=== PATIENT | female | born 1970 | race Caucasian/White ===

== ENCOUNTER 2022-02-01 23:44 | Emergency (ER) | payer SELFPAY ==
[~2022-02-01] VITALS: Ht 160 cm; Wt 61.4 kg
[2022-02-01 23:49] VITALS: BP 163/82
--- NOTE | 2022-02-02 00:06 | NUR ---
CONTACTED POISON CONTROL FOR PT. THEY RECOMMENDED THE FOLLOWING: WATCH PT FOR 6-8HRS, POSSIBLE RIB SAWYER/RESPIRATORY DEPRESSION AND POSSIBLE SEIZURES (BENZOS COULD HELP THIS IF OCCURS), OBTAIN LABS--CBC, CMP, TYLENOL, ASPIRIN, ALCOHOL; ENSURE TO WATCH PT UNTIL COMES BACK TO BASELINE. ER DOCTOR INFORMED OF UPDATE FROM POISON CONTROL AND PLAN.
--- NOTE | 2022-02-02 01:26 | NUR ---
PT REQUESTED UPDATE ON WHAT POISON CONTROL RECOMMENDED AND WHAT PROVIDER PLANNED. I SPOKE WITH PT AND PT's AND AFTER PROVIDING THEM WITH THE PLAN, THEY DECIDED AGAINST MEDICAL RECOMMENDATION TO LEAVE AND GO HOME FOR THE NIGHT. PT AND VERBALIZED UNDERSTANDING OF INSTRUCTIONS AND RISK OF GOING HOME WITHOUT BEING SEEN BY PROVIDER AND GETTING RESULTS OF LABS ETC...
== END 2022-02-02 01:31 | disposition left against medical advice (07) ==
LOC: ER 23:46
DX: T40.425A Adverse effect of tramadol, initial encounter (principal); Z53.21 Procedure and treatment not carried out due to patient leaving prior to being seen by health care provider; Y92.89 Other specified places as the place of occurrence of the external cause

== ENCOUNTER 2023-12-10 15:17 | Inpatient (IN) | payer BC ==
[~2023-12-10] VITALS: Ht 160 cm; Wt 63.0 kg
[2023-12-10 17:13] LABS: BASOPHILS # (AUTO) 0.1 X10'3 (0-0.2); BASOPHILS % (AUTO) 0.3 % (0-1); EOSINOPHILS % (AUTO) 0.1 % (0-6); HEMATOCRIT 38.1 % (35.0-45.0); HEMOGLOBIN 12.9 g/dl (12.0-16.0); LYMPHOCYTES # (AUTO) 0.9 X10'3 (1.1-4.8); LYMPHOCYTES % (AUTO) 5.1 % (21-51); MEAN CORPUSCULAR HEMOGLOBIN 32.8 PG (27.0-31.0); MEAN CORPUSCULAR VOLUME 96.4 FL (78-98); MEAN PLATELET VOLUME 7.3 FL (7.4-10.4); MONOCYTES # (AUTO) 1.5 X10'3 (0-0.9); MONOCYTES % (AUTO) 8.6 % (2-12); NEUTROPHILS # (AUTO) 14.9 X10'3 (1.8-7.7); NEUTROPHILS % (AUTO) 85.9 % (42-75); PLATELET COUNT 321 X10'3 (140-440); RED BLOOD COUNT 3.95 X10'6 (4.20-5.60); RED CELL DISTRIBUTION WIDTH 12.6 % (11.5-14.5); WHITE BLOOD COUNT 17.3 X10'3 (4.5-11.0)
[2023-12-10 17:22] LABS: ALBUMIN 2.9 G/DL (3.4-5.0); ANION GAP 10 (8-16); BLOOD UREA NITROGEN 18 MG/DL (7-18); BUN/CREATININE RATIO 23.1 (10.0-20.0); CALCIUM 8.8 MG/DL (8.5-10.1); CHLORIDE 101 MMOL/L (99-107); CREATININE 0.78 MG/DL (0.40-0.90); GLUCOSE 92 MG/DL (70-104); POTASSIUM 3.6 MMOL/L (3.5-5.1); SODIUM 138 MMOL/L (135-145); TOTAL CARBON DIOXIDE 26.7 MMOL/L (24-32); eCRCL 69 ML/MIN; eGFR 77 ML/MIN
[2023-12-10 20:31] LABS: BILIRUBIN,URINE SMALL (Neg); CLARITY,URINE SLIGHTLY CLOUDY (Clear); COLOR,URINE YELLOW (Yellow); GLUCOSE, URINE NEGATIVE (Neg); KETONES,URINE >=80 mg/dl (Neg); LEUKOCYTE ESTERASE ,URINE TRACE (Neg); NITRITES, URINE POSITIVE (Neg); OCCULT BLOOD,URINE SMALL (Neg); PROTEIN,URINE 30 mg/dl (Neg)
[2023-12-10 20:37] LABS: UA COLLECTION TYPE CLN CATCH MIDSTREAM
[2023-12-10 20:38] LABS: BACTERIA,URINE 4+ /HPF (Neg); WBC,URINE 20-30 /HPF (0-4)
[2023-12-10 20:39] LABS: SQUAMOUS EPITHELIAL CELL,UR FEW /LPF (FEW); TRANSITIONAL EPI CELLS,URINE FEW /HPF; WBC CLUMPS,URINE FEW /HPF (NEGATIVE)
[2023-12-10 21:38] LABS: BASOPHILS % (AUTO) 0.1 % (0-1); EOSINOPHILS % (AUTO) 0.1 % (0-6); HEMATOCRIT 35.7 % (35.0-45.0); HEMOGLOBIN 12.3 g/dl (12.0-16.0); LYMPHOCYTES # (AUTO) 1.4 X10'3 (1.1-4.8); LYMPHOCYTES % (AUTO) 7.9 % (21-51); MEAN CORPUSCULAR HEMOGLOBIN 33.4 PG (27.0-31.0); MEAN CORPUSCULAR HGB CONC 34.5 g/dL (33.0-36.5); MEAN CORPUSCULAR VOLUME 96.7 FL (78-98); MEAN PLATELET VOLUME 7.1 FL (7.4-10.4); MONOCYTES # (AUTO) 1.6 X10'3 (0-0.9); MONOCYTES % (AUTO) 8.8 % (2-12); NEUTROPHILS # (AUTO) 14.6 X10'3 (1.8-7.7); NEUTROPHILS % (AUTO) 83.1 % (42-75); PLATELET COUNT 284 X10'3 (140-440); RED BLOOD COUNT 3.69 X10'6 (4.20-5.60); RED CELL DISTRIBUTION WIDTH 12.7 % (11.5-14.5); WHITE BLOOD COUNT 17.6 X10'3 (4.5-11.0)
[2023-12-10 21:48] LABS: ALBUMIN 2.8 G/DL (3.4-5.0); ANION GAP 12 (8-16); BLOOD UREA NITROGEN 19 MG/DL (7-18); BUN/CREATININE RATIO 21.6 (10.0-20.0); CALCIUM 8.7 MG/DL (8.5-10.1); CHLORIDE 102 MMOL/L (99-107); CREATININE 0.88 MG/DL (0.40-0.90); GLUCOSE 76 MG/DL (70-104); POTASSIUM 3.2 MMOL/L (3.5-5.1); SODIUM 138 MMOL/L (135-145); TOTAL CARBON DIOXIDE 23.9 MMOL/L (24-32); eCRCL 61 ML/MIN; eGFR 67 ML/MIN
[2023-12-10] MEDS: CefTRIAXone 2gm/D5W 50ml BAG 50 ML IV ONE (22:24)
[2023-12-10] MEDS: normal saline 1000ml 1,000 ML IV ONE (23:12)
[2023-12-10] MEDS ORDERED: HYDROcodone/acetaminophen 5mg/325mg tablet PO PRN (23:15)
[2023-12-10] MEDS ORDERED: magnesium 4gm in 100ml NS 100 ML IV PRN (23:15)
[2023-12-10] MEDS ORDERED: magnesium 2GM in 50ml NS 50 ML IV PRN (23:15)
[2023-12-10] MEDS ORDERED: potassium Cl 20 mEq SR tablet PO PRN (23:15)
[2023-12-10] MEDS ORDERED: magnesium Cl slow-release 64mg tablet PO PRN (23:15)
[2023-12-10] MEDS ORDERED: potassium Cl 40MEQ/1/2NS 520ml 520 ML IV PRN (23:15)
[2023-12-10] MEDS ORDERED: acetaminophen 325mg tablet PO PRN (23:15)
[2023-12-10] MEDS ORDERED: ondansetron/PF 4mg/2ml inj IV PRN (23:15)
[2023-12-10] MEDS: acetaminophen 1,000mg/100ml IV 100 ML IV ONE (23:24)
[2023-12-11] MEDS: normal saline 1000ml 1,000 ML IV SCH (00:42)
[2023-12-11] MEDS: acetaminophen 325mg tablet PO PRN (04:01)
[2023-12-11] MEDS: acetaminophen 1,000mg/100ml IV 100 ML IV ONE (06:05)
[2023-12-11] MEDS: CefTRIAXone/D5W-Rocephin 1gm 50 ML IV SCH (07:53)
[2023-12-11 08:24] LABS: BASOPHILS % (AUTO) 0.2 % (0-1); EOSINOPHILS % (AUTO) 0.2 % (0-6); HEMATOCRIT 32.8 % (35.0-45.0); HEMOGLOBIN 11.1 g/dl (12.0-16.0); LYMPHOCYTES # (AUTO) 1.3 X10'3 (1.1-4.8); LYMPHOCYTES % (AUTO) 8.4 % (21-51); MEAN CORPUSCULAR HGB CONC 33.9 g/dL (33.0-36.5); MEAN CORPUSCULAR VOLUME 97.1 FL (78-98); MEAN PLATELET VOLUME 7.1 FL (7.4-10.4); MONOCYTES # (AUTO) 1.6 X10'3 (0-0.9); MONOCYTES % (AUTO) 10.5 % (2-12); NEUTROPHILS % (AUTO) 80.7 % (42-75); PLATELET COUNT 268 X10'3 (140-440); RED BLOOD COUNT 3.37 X10'6 (4.20-5.60); RED CELL DISTRIBUTION WIDTH 12.6 % (11.5-14.5); WHITE BLOOD COUNT 14.9 X10'3 (4.5-11.0)
[2023-12-11] MEDS: K and/or MAG REPLACEMENT MC SCH (08:38)
[2023-12-11] MEDS: potassium Cl 20 mEq SR tablet PO PRN (08:47)
[2023-12-11] MEDS ORDERED: THY60T PO (08:50)
[2023-12-11] MEDS ORDERED: PROG100C11 PO (08:50)
[2023-12-11 09:05] LABS: ALBUMIN 2.3 G/DL (3.4-5.0); ANION GAP 14 (8-16); BLOOD UREA NITROGEN 14 MG/DL (7-18); BUN/CREATININE RATIO 19.4 (10.0-20.0); CALCIUM 7.9 MG/DL (8.5-10.1); CHLORIDE 104 MMOL/L (99-107); CREATININE 0.72 MG/DL (0.40-0.90); GLUCOSE 64 MG/DL (70-104); MAGNESIUM 1.8 MG/DL (1.5-2.4); PHOSPHORUS 2.7 MG/DL (2.3-4.5); POTASSIUM 3.4 MMOL/L (3.5-5.1); SODIUM 138 MMOL/L (135-145); TOTAL CARBON DIOXIDE 19.8 MMOL/L (24-32); eCRCL 75 ML/MIN; eGFR 85 ML/MIN
[2023-12-11 17:27] VITALS: BP 109/57; PULSE 83; RESP 16; TEMP 98.8; O2SAT 97
[2023-12-11 18:00] VITALS: BP 131/74; PULSE 80; RESP 16; TEMP 98.4; O2SAT 99
[2023-12-11] MEDS: enoxaparin 40mg/0.4ml syringe SUBCUT SCH (20:00)
[2023-12-11 20:18] VITALS: TEMP 103.1
[2023-12-11 21:20] VITALS: TEMP 99.1
[2023-12-11 22:00] VITALS: BP 113/68; PULSE 71; RESP 16; TEMP 98.1; O2SAT 96
[2023-12-11] MEDS: progesterone, micronized 100mg capsule PO SCH (22:14)
[2023-12-12 06:18] LABS: BASOPHILS % (AUTO) 0.3 % (0-1); EOSINOPHILS # (AUTO) 0.1 X10'3 (0-0.9); EOSINOPHILS % (AUTO) 1.1 % (0-6); HEMATOCRIT 31.8 % (35.0-45.0); HEMOGLOBIN 11.1 g/dl (12.0-16.0); LYMPHOCYTES # (AUTO) 1.7 X10'3 (1.1-4.8); LYMPHOCYTES % (AUTO) 18.7 % (21-51); MEAN CORPUSCULAR HEMOGLOBIN 33.4 PG (27.0-31.0); MEAN CORPUSCULAR HGB CONC 34.8 g/dL (33.0-36.5); MEAN CORPUSCULAR VOLUME 96.2 FL (78-98); MEAN PLATELET VOLUME 7.2 FL (7.4-10.4); MONOCYTES % (AUTO) 11.5 % (2-12); NEUTROPHILS # (AUTO) 6.1 X10'3 (1.8-7.7); NEUTROPHILS % (AUTO) 68.4 % (42-75); PLATELET COUNT 306 X10'3 (140-440); RED BLOOD COUNT 3.31 X10'6 (4.20-5.60); RED CELL DISTRIBUTION WIDTH 12.8 % (11.5-14.5); WHITE BLOOD COUNT 8.9 X10'3 (4.5-11.0)
[2023-12-12 06:31] VITALS: BP 110/65; PULSE 65; RESP 14; TEMP 98.2; O2SAT 99
[2023-12-12 06:39] LABS: ALBUMIN 2.2 G/DL (3.4-5.0); ANION GAP 4 (8-16); BLOOD UREA NITROGEN 10 MG/DL (7-18); BUN/CREATININE RATIO 14.5 (10.0-20.0); CHLORIDE 108 MMOL/L (99-107); CREATININE 0.69 MG/DL (0.40-0.90); GLUCOSE 97 MG/DL (70-104); MAGNESIUM 2.1 MG/DL (1.5-2.4); PHOSPHORUS 2.7 MG/DL (2.3-4.5); POTASSIUM 3.7 MMOL/L (3.5-5.1); SODIUM 138 MMOL/L (135-145); TOTAL CARBON DIOXIDE 26.2 MMOL/L (24-32); eCRCL 78 ML/MIN; eGFR 89 ML/MIN
[2023-12-12] MEDS: thyroid, pork 30mg tablet PO SCH (07:46)
[2023-12-12 10:00] VITALS: BP 117/68; PULSE 70; RESP 17; TEMP 97.9; O2SAT 97
[2023-12-12] MEDS ORDERED: CIPR-259 PO (13:24)
== END 2023-12-12 14:25 | disposition home or self-care (01) | DRG 872 ==
LOC: ER 15:18 → ED HOLD 23:15 → EDBEDREQ 12-11 05:38 → SUR 3N 12-11 16:35
PROVIDERS: ADMIT Surgery Surgical Critical Care; ATTEND Internal Medicine
DX: A41.9 Sepsis, unspecified organism (principal); N10 Acute pyelonephritis; Z20.822 Contact with and (suspected) exposure to COVID-19
CPT/HCPCS: 36415; 71045; 74176; 80048; 81001; 83605; 83735; 84100; 84145; 85025; 87040; 87077; 87081; 87088; 87186; 87502; 87503; 87811; 99285; G0378; J0131; J0696; J7030; J7040